=== PATIENT | female | born 1960 | race Caucasian/White ===

== ENCOUNTER 2018-12-30 15:07 | Emergency (ER) | payer OTHER ==
[~2018-12-30] VITALS: Ht 172.7 cm; Wt 76.2 kg
--- OUTSIDE RECORDS SUMMARY | ~2018-12-30 | XMS | Clinical Summary ---
Demographics + + + | Address | [address] | | | [place] [address] | + + + | Home Phone | | + + + | Preferred Language | Unknown | + + + | Marital Status | Single | + + + | Baptist Affiliation | Unknown | + + + | Race | White | + + + | Ethnic Group | Not or | + + + Author + + + | Author | [facility] | + + + | Organization | [facility] | + + + | Address | Unknown | + + + | Phone | Unavailable | + + + Support + + +---------+ + | Name | Relationship | Address | Phone | + + +---------+ + | Buck Littlejohn | ECON | Unknown | | + + +---------+ + Care Team Providers + +------+ + | Care Tax Manager Public Name | Role | Phone | + +------+ + | Mony Fernandez | PP | Unavailable | + +------+ + Source Comments MACHELLE is fully live on both [facility] and [facility] Allergies No Known Allergies Current Medications + +------+-------+---------+------+------+-------+ | Prescription | Sig. | Disp. | Refills | Star | End | Statu | | | | | | t | Date | s | | | | | | Date | | | + +------+-------+---------+------+------+-------+ | diclofenac 0.1 % | | | | 02/0 | | Activ | | ophthalmic drops | | | | 6/20 | | e | | | | | | 17 | | | + +------+-------+---------+------+------+-------+ | ofloxacin 0.3 % | | | | 02/0 | | Activ | | ophthalmic drops | | | | 6/20 | | e | | | | | | 17 | | | + +------+-------+---------+------+------+-------+ | prednisoLONE | | | | 02/0 | | Activ | | acetate 1 % | | | | 6/20 | | e | | ophthalmic | | | | 17 | | | | drops,suspension | | | | | | | + +------+-------+---------+------+------+-------+ Active Problems Not on file Encounters +--------+ + + + + | Date | Type | Specialty | Care Team | Description | +--------+ + + + + | 12/20/ | MyChart | | | Research Opportunity | | 2019 | Encounter | | | | +--------+ + + + + from Last 3 Months Social History + +-------+ +--------+------+ | Tobacco Use | Types | Packs/Day | Years | Date | | | | | Used | | + +-------+ +--------+------+ | Never Smoker | | | | | + +-------+ +--------+------+ + + + | Sex Assigned at | Date Recorded | | | | + + + | Not on file | | + + + Last Filed Vital Signs + + + + | Vital Sign | Reading | Time Taken | + + + + | Blood Pressure | 124/80 | 12/05/2016 12:46 PM PST | + + + + | Pulse | 84 | 12/05/2016 12:46 PM PST | + + + + | Temperature | - | - | + + + + | Respiratory Rate | 20 | 11/21/2016 7:37 AM PST | + + + + | Oxygen Saturation | 96% | 10/02/2016 11:18 AM PST | + + + + | Inhaled Oxygen | - | - | | Concentration | | | + + + + | Weight | 68.2 kg (150 lb 6.4 | 10/02/2016 11:18 AM PST | | | oz) | | + + + + | Height | 180.3 cm (5' 11") | 10/02/2016 11:18 AM PST | + + + + | Body Mass Index | 20.98 | 10/02/2016 11:18 AM PST | + + + + Plan of Treatment + + + + + | Health Maintenance | Due Date | Last Done | Comments | + + + + + | Influenza (Flu) | | | | | vaccination (#1) | 8 | | | + + + + + Results Not on filefrom Last 3 Months Insurance + +--------+ +--------+-------+---------+ | Payer | Benefi | Subscriber | Type | Phone | Address | | | t Plan | ID | | | | | | / | | | | | | | Group | | | | | + +--------+ +--------+-------+---------+ | SENIOR MAINTENANCE MACHINIST MEDICAID | SENIOR MAINTENANCE MACHINIST | xxxxxxxx | Medica | | | | | [place] | | id | | | | | [place] | | | | | + +--------+ +--------+-------+---------+ | SENIOR MAINTENANCE MACHINIST MEDICAID | SENIOR MAINTENANCE MACHINIST | xxxxxxxx | Medica | | | | | [place] | | id | | | | | [place] | | | | | + +--------+ +--------+-------+---------+ + +--------+ +--------+ + + | Guarantor Name | Accoun | Relation to | Date | Phone | Billing Address | | | t Type | Patient | of | | | | | | | | | | + +--------+ +--------+ + + | PATRICIA MORENO | Person | Self [birth year] | Home: | [address] | | | al/Fam | | 1960 | [phone] | [place] [address] | | | jameson | | | [address] | | + +--------+ +--------+ + + | PATRICIA MORENO | Person | Self | [birth year] | Home: | [address] | | | al/Fam | | 1959 | [phone]- | [place] [address] | | | jameson | | | [address] | | + +--------+ +--------+ + +
--- OUTSIDE RECORDS SUMMARY | ~2018-12-30 | XMS | Clinical Summary ---
Demographics + + + | Address | [address] | | | [place] [address] | + + + | Home Phone | | + + + | Preferred Language | Unknown | + + + | Marital Status | Single | + + + | Sikh Affiliation | Unknown | + + + | Race | White | + + + | Ethnic Group | Not or | + + + Author + + + | Author | [facility] | + + + | Organization | [facility] | + + + | Address | Unknown | + + + | Phone | Unavailable | + + + Support + + +---------+ + | Name | Relationship | Address | Phone | + + +---------+ + | Buck Littlejohn | ECON | Unknown | | + + +---------+ + Care Team Providers + +------+ + | Care Erection Shop Supervisor Name | Role | Phone | + +------+ + | Mony Fernandez | PP | Unavailable | + +------+ + Source Comments MACHELLE is fully live on both [facility] and [facility] InPatient.[facility] Allergies No Known Allergies Current Medications + [...] | | | + +--------+ +--------+-------+---------+ | FIELD ARTILLERY TARGETING TECHNICIAN MEDICAID | FIELD ARTILLERY TARGETING TECHNICIAN | xxxxxxxx | Medica | | | | | [place] | | id | | | | | [place] | | | | | + +--------+ +--------+-------+---------+ | FIELD ARTILLERY TARGETING TECHNICIAN MEDICAID | FIELD ARTILLERY TARGETING TECHNICIAN | xxxxxxxx | Medica | | | [...] | Self | [birth year] | Home: | [address] | | | al/Fam | | 1960 | [phone] | [place] [address] | | | jameson | | | [address] | | + +--------+ +--------+ + + | PATRICIA MORENO | Person | Self | [birth year] | Home: | [address] | | | al/Fam | | 1959 | [phone]- | [place] [address] | | | jameson | | | [address] | | + +--------+ +--------+ + +
--- OUTSIDE RECORDS SUMMARY | ~2018-12-30 | XMS | Encounter Summary ---
Demographics + + + | Address | [address] | | | [place] [address] | + + + | Home Phone | | + + + | Preferred Language | Unknown | + + + | Marital Status | Single | + + + | Rastafarian Affiliation | Unknown | + + + | Race | White | + + + | Ethnic Group | Not or | + + + Author + + + | Author | [facility] | + + + | Organization | [facility] | + + + | Address | Unknown | + + + | Phone | Unavailable | + + + Support + + +---------+ + | Name | Relationship | Address | Phone | + + +---------+ + | Buck Littlejohn | ECON | Unknown | | + + +---------+ + Care Team Providers + +------+ + | Care Brazer Assembler Name | Role | Phone | + +------+ + | Mony Fernandez | PCP | Unavailable | + +------+ + Encounter Details +--------+ + + + + | Date | Type | Department | Care Team | Description | +--------+ + + + + | 12/20/ | MyChart | [facility] [id number] | | Research Opportunity | | 2019 | Encounter | [address] | | | | | | Road [place], [place] | | | | | | [address] | | | +--------+ + + + + Social History + +-------+ +--------+------+ | Tobacco [...] on file | | + + + as of this encounter Plan of Treatment Not on fileas of this encounter Visit Diagnoses Not on filein this encounter"
--- OUTSIDE RECORDS SUMMARY | ~2018-12-30 | XMS | Encounter Summary ---
Demographics + + + | Address | [address] | | | [place] [address] | + + + | Home Phone | | + + + | Preferred Language | Unknown | + + + | Marital Status | Single | + + + | Restorationism Affiliation | Unknown | + + + | Race | White | + + + | Ethnic Group | Not or | + + + Author + + + | Author | [facility] | + + + | Organization | [facility] | + + + | Address | Unknown | + + + | Phone | Unavailable | + + + Support + + +---------+ + | Name | Relationship | Address | Phone | + + +---------+ + | Buck Littlejohn | ECON | Unknown | | + + +---------+ + Care Team Providers + +------+ + | Care Health Insurance Agent Name | Role | Phone | + [...] | | | | | | Road [place], [place] | | | | | | [address] | | | +--------+ + + + [...]
[2018-12-30] MEDS ORDERED: ONDANSETRON ODT8 MG PO (16:39)
[2018-12-30] MEDS ORDERED: PENICILLIN V P500 MG PO (16:39)
== END 2018-12-30 16:47 | disposition home or self-care (01) ==
LOC: ED 15:07
DX: K04.7 Periapical abscess without sinus (principal)
CPT/HCPCS: 99282